=== PATIENT | female | born 1980 | race Caucasian/White ===

== ENCOUNTER 2018-09-11 19:17 | Emergency (ER) | payer OTHER ==
--- NOTE | 2018-09-11 19:36 | ED Physician Documentation ---
History of Present Illness - Stated complaint Stated Complaint: SHOULDER/NECK PX - Chief complaint Chief Complaint: Ext Problem - History obtained from History obtained from: Patient - History of Present Illness Timing: Other (She took a road trip about a week and a half ago. After that she had some left-sided neck and shoulder pain. She went to the chiropractor yesterday and after that visit developed severe diffuse body aches, feels weak and dizzy and a little headachy with chills.) Review of Systems Constitutional: reports: Chills, Myalgias, Fatigue Nose: reports: Rhinorrhea / runny nose Throat: denies: Sore throat Respiratory: denies: Dyspnea, Cough PD PAST MEDICAL HISTORY - Past Medical History Past Medical History: No Cardiovascular: None Respiratory: None - Past Surgical History Past Surgical History: No - Present Medications Home Medications: Ambulatory Orders Medication Instructions Recorded Confirmed No Known Home Medications 01/28/14 09/11/18 - Allergies Allergies/Adverse Reactions: Allergies Allergy/AdvReac Type Severity Reaction Status Date / Time No Known Drug Allergies Allergy Verified 09/11/18 19:25 - Social History Does the pt smoke?: No Smoking Status: Never smoker Does the pt drink ETOH?: No Does the pt have substance abuse?: No - Immunizations Immunizations: TDAP >10years/unknown - POLST Patient has POLST: No PD ED PE NORMAL - Vitals Vital signs reviewed: Yes - General General: Alert and oriented X 3, No acute distress - HEENT HEENT: PERRL, EOMI - Neck Neck: Supple, no meningeal sign, No bony TTP - Cardiac Cardiac: RRR, No murmur - Respiratory Respiratory: No respiratory distress, Clear bilaterally - Abdomen Abdomen: Normal bowel sounds, Soft, Non tender - Back Back: No CVA TTP, No spinal TTP - Derm Derm: Normal color, Warm and dry, No rash - Extremities Extremities: Other (The patient has equal and normal Achilles and patellar reflexes bilaterally. Normal sensation in all areas of the legs. Patient denies saddle anesthesia. Normal strength in flexion-extension at the ankles, knees, and flexion of the hips.) - Neuro Neuro: Alert and oriented X 3, Normal speech Results - Vitals Vitals: Vital Signs - 24 hr 09/11/18 09/11/18 19:20 20:29 Temperature 37.2 C 36.5 C Heart Rate 121 H 103 H Respiratory 17 18 Rate Blood Pressure 140/102 H 125/80 O2 Saturation 99 97 Oxygen O2 Source Room air - Labs Labs: Laboratory Tests 09/11/18 09/11/18 09/11/18 19:38 19:38 20:41 WBC 8.2 RBC 5.49 H Hgb 15.7 Hct 46.2 MCV 84.2 MCH 28.5 MCHC 33.9 RDW 12.9 Plt Count 230 MPV 7.9 Neut # (Auto) 5.2 Lymph # (Auto) 2.2 [place] # (Auto) 0.6 Eos # (Auto) 0.0 Baso # (Auto) 0.1 Absolute Nucleated RBC 0.00 Nucleated RBC % 0.1 Sodium Potassium Chloride Carbon Dioxide Anion Gap BUN Creatinine Estimated GFR (MDRD) Glucose Calcium Total Bilirubin AST ALT Alkaline Phosphatase Total Protein Albumin Globulin Albumin/Globulin Ratio Lipase Urine Color LT. YELLOW Urine Clarity CLEAR Urine pH 6.0 Ur Specific [place] <=1.005 Urine Protein NEGATIVE Urine Glucose (UA) NEGATIVE Urine Ketones NEGATIVE Urine Occult Blood NEGATIVE Urine Nitrite NEGATIVE Urine Bilirubin NEGATIVE Urine Urobilinogen 0.2 (NORMAL) Ur Leukocyte Esterase SMALL H Urine RBC 0-5 Urine WBC 4-5 Ur Squamous Epith Cells MANY Squamous H Urine Bacteria None Seen Ur Microscopic Review INDICATED Urine Culture Comments NOT INDICATED Influenza A (Rapid) Negative Influenza B (Rapid) Negative 09/11/18 20:41 WBC RBC Hgb Hct MCV MCH MCHC RDW Plt Count MPV Neut # (Auto) Lymph # (Auto) [place] # (Auto) Eos # (Auto) Baso # (Auto) Absolute Nucleated RBC Nucleated RBC % Sodium 134 L Potassium 3.7 Chloride 99 L Carbon Dioxide 25 Anion Gap 10.0 BUN 9 Creatinine 0.7 Estimated GFR (MDRD) 95 Glucose 101 H Calcium 9.8 Total Bilirubin 0.9 AST 17 ALT 22 Alkaline Phosphatase 53 Total Protein 8.2 Albumin 4.6 Globulin 3.6 Albumin/Globulin Ratio 1.3 Lipase 40 Urine Color Urine Clarity Urine pH Ur Specific [place] Urine Protein Urine Glucose (UA) Urine Ketones Urine Occult Blood Urine Nitrite Urine Bilirubin Urine Urobilinogen Ur Leukocyte Esterase Urine RBC Urine WBC Ur Squamous Epith Cells Urine Bacteria Ur Microscopic Review Urine Culture Comments Influenza A (Rapid) Influenza B (Rapid) - Rads (name of study) 2v chest Radiology: EMP read contemporaneously (normal) PD MEDICAL DECISION MAKING - ED course ED course: This is a 38-year-old woman with diffuse myalgias and chills after going and seeing the chiropractor. My initial suspicion was for influenza or another viral illness, I still have a high suspicion for that despite the negative influenza swab. The history and physical are inconsistent with either a vertebral artery injury or lumbar disc herniation. She declined pain medications or muscle relaxers. Departure - Departure Disposition: 01 Home, Self Care Clinical Impression: Myalgia Condition: Good Record reviewed to determine appropriate education?: Yes Instructions: ED Acute Pain [facility] Comments: Tylenol or ibuprofen as needed for pain. Follow-up with your doctor in 2-5 days if not better, return for new or worsening symptoms.
[2018-09-11 19:51] LABS: BILIRUBIN,URINE NEGATIVE (NEGATIVE); GLUCOSE, URINE (UA) NEGATIVE (NEGATIVE); KETONES,URINE (UA) NEGATIVE (NEGATIVE); LEUKOCYTE ESTERASE, URINE SMALL (NEGATIVE); NITRITE,URINE NEGATIVE (NEGATIVE); OCCULT BLOOD,URINE NEGATIVE (NEGATIVE); PROTEIN,URINE NEGATIVE (NEGATIVE); UROBILINOGEN,URINE 0.2 (NORMAL) E.U./dL (NORMAL)
[2018-09-11 19:53] LABS: CLARITY,URINE CLEAR (CLEAR)
[2018-09-11 20:05] LABS: BACTERIA,URINE None Seen /HPF (None Seen); RBC,URINE 0-5 /HPF (0-5); SQUAMOUS EPITHELIAL CELL,UR MANY Squamous (<= Few)
[2018-09-11 20:30] VITALS: BP 125/80
--- NOTE | 2018-09-11 20:39 | XRAY Report ---
Reason: rib pain Procedure Date: 09/11/2018 Accession Number: [id number] / [id number] Procedure: XR - Chest 2 View X-Ray CPT Code: 42806 FULL RESULT: EXAM: CHEST RADIOGRAPHY EXAM DATE: 09/11/2018 08:29 PM. CLINICAL HISTORY: Rib pain. COMPARISON: None. TECHNIQUE: 2 views. FINDINGS: Lungs/Pleura: No focal opacities evident. No pleural effusion. No pneumothorax. Normal volumes. Mediastinum: Heart and mediastinal contours are unremarkable. Other: Rib detail radiographs were not obtained, but ribs are unremarkable. IMPRESSION: Normal 2-view chest radiography. [facility]
[2018-09-11 20:56] LABS: BASOPHILS # (AUTO) 0.1 10^3/uL (0.0-0.1); BASOPHILS % (AUTO) 0.9 %; EOSINOPHILS % (AUTO) 0.6 %; HGB - HEMOGLOBIN 15.7 g/dL (12.0-16.0); LYMPHOCYTES # (AUTO) 2.2 10^3/uL (1.5-3.5); MEAN CORPUSCULAR HEMOGLOBIN 28.5 pg (27.0-31.0); MEAN CORPUSCULAR HGB CONC 33.9 g/dL (32.0-36.0); MEAN CORPUSCULAR VOLUME 84.2 fL (81.0-99.0); MEAN PLATELET VOLUME 7.9 fL (7.9-10.8); MONOCYTES # (AUTO) 0.6 10^3/uL (0.0-1.0); MONOCYTES % (AUTO) 7.7 %; NEUTROPHILS # (AUTO) 5.2 10^3/uL (1.5-6.6); NEUTROPHILS % (AUTO) 63.8 %; PLT - PLATELET COUNT 230 10^3/uL (130-450); RED BLOOD COUNT 5.49 10^6/uL (4.20-5.40); RED CELL DISTRIBUTION WIDTH 12.9 % (12.0-15.0); WHITE BLOOD COUNT 8.2 x10^3/uL (4.8-10.8)
[2018-09-11 21:00] LABS: ALBUMIN 4.6 g/dL (3.2-5.5); ALBUMIN/GLOBULIN RATIO 1.3 (1.0-2.2); BILIRUBIN,TOTAL 0.9 mg/dL (0.2-1.0); CALCIUM 9.8 mg/dL (8.5-10.3); CREATININE 0.7 mg/dL (0.4-1.0); TOTAL PROTEIN 8.2 g/dL (6.7-8.2)
== END 2018-09-11 21:20 | disposition home or self-care (01) ==
LOC: ED 19:17
DX: M79.10 Myalgia, unspecified site (principal)
CPT/HCPCS: 36415; 71046; 80053; 81001; 81003; 83690; 85025; 87086; 87275; 87276; 99282; 99283

== ENCOUNTER 2018-12-09 13:33 | Outpatient (CLI) | payer OTHER ==
--- NOTE | 2018-12-09 16:15 | MRI Report ---
Reason: CERVICALGIA Procedure Date: 12/09/2018 Accession Number: [id number] / [id number] Procedure: MRI - Cervical Spine W/O CPT Code: FULL RESULT: EXAM: MRI CERVICAL SPINE WITHOUT CONTRAST EXAM DATE: 12/09/2018 02:32 PM. CLINICAL HISTORY: CERVICALGIA. COMPARISONS: Prior plain film chest 09/11/2018. TECHNIQUE: Multiplanar, multisequence T1-weighted and fluid-sensitive sequences of the cervical spine without contrast. Other: None. Findings: Relevant images are indicated (image number, series number). Limited evaluation posterior cranial fossa contents are unremarkable, cerebellar tonsils are normally positioned. No abnormal cervical, upper thoracic cord signal, no suspicious marrow lesion. No prevertebral soft tissue swelling. There is no cervical paraspinal mass or collection. Normal expected vascular flow voids of the major arteries/veins. Surrounding skeletal muscle unremarkable. C1-C2: Unremarkable. C2-C3: Mild disk desiccation only. C3-C4: Mild disk desiccation, small posterior disk bulge, mild canal stenosis, no significant bilateral neural foraminal narrowing. C4-C5: Moderate disk degenerative change, small posterior central disk bulge, moderate canal stenosis without significant bilateral neural foraminal narrowing. C5-C6: Moderate disk degenerative change, mild canal stenosis, no significant bilateral neural foraminal narrowing. C6-C7, through T1-T2 are unremarkable. Impressions: 1. No acute findings, multilevel cervical spondylosis, no abnormal cervical cord signal. Pertinent degenerative levels below. 2. C3-C4: Mild degenerative canal stenosis without significant neural foraminal narrowing. 3. C4-C5: Moderate degenerative canal stenosis, posterior disk bulge, no significant bilateral neural foramina narrowing. 4. C5-C6: Mild degenerative canal stenosis without significant neural foraminal narrowing. 5. Milder or no significant degenerative changes at the remaining cervical, upper thoracic spine levels as detailed. [facility]
== END 2018-12-09 13:34 | disposition home or self-care (01) ==
LOC: DI 13:33
PROVIDERS: ATTEND Physician Assistant
DX: M50.31 Other cervical disc degeneration, high cervical region (principal); M48.02 Spinal stenosis, cervical region
CPT/HCPCS: 72141